=== PATIENT | female | born 1960 | race Hispanic/Latino ===

== ENCOUNTER 2017-07-18 18:07 | Emergency (ER) | payer OTHER ==
[2017-07-18] MEDS ORDERED: Oxycodone/Acetaminophen 5/325 mg Tab PO STA (19:45)
--- NOTE | 2017-07-18 19:47 | C.PDOC ---
History Of Present Illness 56yo female with history of chronic back pain for which she is taking tramadol and neurontin, presents to ED for evaluation of a vesicular rash on her left lower abdomen, present for the past 3 days. She denies any fever, chills, chest pain, shortness of breath and offers no other medical complaints. Time Seen by Provider: 07/18/17 19:39 Chief Complaint (Nursing): Abnormal Skin Integrity History Per: Patient History/Exam Limitations: no limitations Onset/Duration Of Symptoms: Days (3) Current Symptoms Are (Timing): Still Present Location Of Injury: Left: Abdomen (lower) Quality Of Symptoms: Painful Additional History Per: Patient Past Medical History Reviewed: Historical Data, Nursing Documentation, Vital Signs Vital Signs: Last Vital Signs Temp 98.5 F 07/18/17 19:59 Pulse 87 07/18/17 19:59 Resp 16 07/18/17 19:59 BP 141/82 07/18/17 19:59 Pulse Ox 97 07/18/17 19:59 - Medical History PMH: Back Problems Surgical History: No Surg Hx - [facility] Procedures TETANUS TOXOID ADMINIST (09/25/12) Family History: States: No Known Family Hx - Social History Hx Alcohol Use: No Hx Substance Use: No - Immunization History Hx Tetanus Toxoid Vaccination: No Hx Influenza Vaccination: Yes Hx Pneumococcal Vaccination: No Review Of Systems Except As Marked, All Systems Reviewed And Found Negative. Constitutional: Negative for: Fever, Chills Skin: Positive for: Rash (left lower abdomen) Physical Exam - Physical Exam Appears: Non-toxic Skin: Warm, Dry, Rash (vesicular rash to left lower abdomen dermatome with no midline crossing.) Head: Atraumatic, Normacephalic Eye(s): bilateral: PERRL Neck: Normal ROM, Supple Chest: Symmetrical Cardiovascular: Rhythm Regular Respiratory: Normal Breath Sounds, No Wheezing Gastrointestinal/Abdominal: Soft, No Tenderness Back: Normal Inspection Extremity: Normal ROM, No Deformity Neurological/Psych: Oriented x3 ED Course And Treatment O2 Sat by Pulse Oximetry: 99 (RA) Pulse Ox Interpretation: Normal Medical Decision Making Medical Decision Making: classic shingles L lower abd Disposition Doctor Will See Patient In The: Office Counseled Patient/Family Regarding: Studies Performed, Diagnosis - Disposition Referrals: [facility] [Outside] [facility] [Outside] [facility] [Outside] Disposition: HOME/ ROUTINE Disposition Time: 19:47 Condition: GOOD Additional Instructions: prednisone 40 mg daily until completed Pepcid 20 mg @ night to prevent stomach irritation from the Prednisone Lidoderm patches to the rash- may cut to size Change as needed Valacyclovir- Anti-viral medication 1000 mg three times a day for 7 days Continue your Gabapentin 300 mg three times a day. Follow-up in our outpatient Clinic as needed. Prescriptions: Lidocaine 5% [Lidoderm] 1 ea TD DAILY #10 patch oxyCODONE/Acetaminophen [Percocet 5/325 mg Tab] 1 ea PO Q6H PRN #20 tab PRN Reason: Pain, Moderate (4-7) Prednisone [Deltasone] 40 mg PO DAILY #8 tablet Valacyclovir HCl [Valacyclovir] 1,000 mg PO Q8H #42 tablet Instructions: Breanna (DC) Forms: [employer] ([place]) - Clinical Impression Clinical Impression: Shingles - Scribe Statement The provider has reviewed the documentation as recorded by the Scribe (Sarah Meehan) Provider Attestation: All medical record entries made by the Scribe were at my direction and personally dictated by me. I have reviewed the chart and agree that the record accurately reflects my personal performance of the history, physical exam, medical decision making, and the department course for this patient. I have also personally directed, reviewed, and agree with the discharge instructions and disposition.
[2017-07-18] MEDS ORDERED: Oxycodone/Acetaminophen 5/325 mg Tab ONE (19:54)
[2017-07-18 20:00] VITALS: BP 141/82; PULSE 87; RESP 16; TEMP 98.5
[2017-07-18 20:54] VITALS: O2SAT 99
== END 2017-07-18 20:01 | disposition home or self-care (01) ==
LOC: C.ER 18:07
DX: B02.9 Zoster without complications (principal)

== ENCOUNTER 2017-08-04 18:31 | Emergency (ER) | payer SELFPAY ==
[2017-08-04 18:46] VITALS: BP 144/90; PULSE 90; RESP 20; TEMP 98.2; O2SAT 99
[2017-08-04] MEDS ORDERED: Lidocaine 5% Patch TD STA (19:44)
[2017-08-04] MEDS ORDERED: Lidocaine 5% Patch TD ONE (19:54)
--- NOTE | 2017-08-04 20:09 | C.PDOC ---
History Of Present Illness 56 y/o female presents to the ER complaining of left- sided abdominal pain. Patient states that she was diagnosed with shingles in [place] [facility] 2 weeks ago and she was prescribed Prednisone and Valacyclovir. Patient reports that she has not finished the course of her medications. Time Seen by Provider: 08/04/17 19:16 Chief Complaint (Nursing): Abdominal Pain History Per: Patient History/Exam Limitations: no limitations Onset/Duration Of Symptoms: Days Current Symptoms Are (Timing): Still Present Severity: Moderate Associated Symptoms: denies: Fever, Chills, Nausea, Vomiting, Diarrhea, Back Pain, Chest Pain Exacerbating Factors: None Alleviating Factors: None Recent travel outside of the [place]: No Past Medical History Reviewed: Historical Data, Nursing Documentation, Vital Signs Vital Signs: Last Vital Signs Temp 98.2 F 08/04/17 18:42 Pulse 90 08/04/17 18:42 Resp 20 08/04/17 18:42 BP 144/90 08/04/17 18:42 Pulse Ox 99 08/04/17 20:28 - Medical History PMH: Back Problems Surgical History: No Surg Hx - [facility] Procedures TETANUS TOXOID ADMINIST (09/25/12) Family History: States: No Known Family Hx - Social History Hx Alcohol Use: No Hx Substance Use: No - Immunization History Hx Tetanus Toxoid Vaccination: No Hx Influenza Vaccination: Yes Hx Pneumococcal Vaccination: No Review Of Systems Except As Marked, All Systems Reviewed And Found Negative. Constitutional: Negative for: Fever, Chills Gastrointestinal: Positive for: Abdominal Pain (left-sided abdominal pain) Physical Exam - Physical Exam Appears: Non-toxic, No Acute Distress Skin: Normal Color, Warm, Dry, Other (healing vesicles to left side of abdomen, no signs of cellulitis) Head: Atraumatic, Normacephalic Eye(s): bilateral: Normal Inspection, PERRL, EOMI Nose: Normal Oral Mucosa: Moist Throat: No Erythema, No Exudate Neck: Normal ROM, Supple Chest: Symmetrical Cardiovascular: Rhythm Regular Respiratory: Normal Breath Sounds, No Rales, No Rhonchi, No Wheezing Gastrointestinal/Abdominal: Bowel Sounds (active), Soft, No Tenderness Back: Normal Inspection, No CVA Tenderness Extremity: Normal ROM, No Tenderness, No Swelling Neurological/Psych: Oriented x3, Normal Speech, Normal Motor, Normal Sensation Gait: Steady ED Course And Treatment O2 Sat by Pulse Oximetry: 99 (RA) Pulse Ox Interpretation: Normal Medical Decision Making Medical Decision Making: Plan: --Lidoderm --Tramadol PO On re-exam, the patient remains playful and alert. Lungs are CTA, heart is RRR, abdomen is soft, non-tender and tolerating Po well. Patient was instructed to follow up with the medical doctor/clinic within 1-2 days. Return to the ED if worsened. Disposition - Disposition Referrals: [facility] [Outside] [facility] [Outside] Disposition: HOME/ ROUTINE Disposition Time: 20:06 Condition: FAIR Additional Instructions: Follow up with the medical clinic within 1-2 days. Return if worsened. Prescriptions: Gabapentin 300 mg PO TID #15 capsule traMADol [Ultram] 50 mg PO Q6 PRN #15 tab PRN Reason: Pain Instructions: Shingles (DC) Forms: [email or web address] (Citizen [place]) - Clinical Impression Clinical Impression: Shingles, Post herpetic neuralgia - PA / TOURIST AGENT / Resident Statement MD/DO has reviewed & agrees with the documentation as recorded. - Scribe Statement The provider has reviewed the documentation as recorded by the Aryanibe Bharati Beltran Provider Attestation All medical record entries made by the Scribe were at my direction and personally dictated by me. I have reviewed the chart and agree that the record accurately reflects my personal performance of the history, physical exam, medical decision making, and the department course for this patient. I have also personally directed, reviewed, and agree with the discharge instructions and disposition.
== END 2017-08-04 20:17 | disposition home or self-care (01) ==
LOC: C.ER 18:31
DX: B02.29 Other postherpetic nervous system involvement (principal)